=== PATIENT | male | born 1970 | race Caucasian/White ===

== ENCOUNTER 2017-05-20 08:35 | Emergency (ER) | payer OTHER ==
[~2017-05-20] VITALS: Ht 182.9 cm; Wt 99.8 kg
[2017-05-20] MEDS ORDERED: IV NORMAL SALINE 1000ML BAG 1,000 ML IV SCH (09:00)
[2017-05-20] MEDS ORDERED: ONDANSETRON PF 4 MG/2 ML VIAL. IV ONE (09:00)
[2017-05-20] MEDS ORDERED: fentaNYL PF VIAL 100 MCG/2 ML VIAL IV PRN (09:00)
--- NOTE | 2017-05-20 09:10 | PHYS DOC ---
Past Medical History Past Medical History: No Pertinent History Past Surgical History: Other Additional Past Surgical Histo: ACL Alcohol Use: None Drug Use: None Adult General Chief Complaint Chief Complaint: OTHER COMPLAINTS HPI HPI Patient is a 46 year old male who presents with complaint of low back pain. Patient states symptoms started 3 days ago. 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 Patient states that this started with tightness in his low back. Patient states that over the past 2-3 days it has progressed to severe tightness and pain in his low back. Patient states he started getting numbness and tingling radiating into his right leg. The patient states that he has been diagnosed in the past with bulging disc and degenerative arthritis at L2 and L3. Patient has not required any surgeries and is not currently on medications for treatment. The patient currently rates his pain as 9 out of 10. Patient states that he started having severe pain in his right lower extremity which progressed to numbness. Patient states that he tried to get out of bed under his own power this morning but unfortunately collapsed to the ground as his right leg did not seem to support him. Patient denies any difficulty with speech or swallowing, foot drop, saddle anesthesia, or loss of bowel or bladder control. Patient has not taken any medications today to help with symptoms. Review of Systems Review of Systems Constitutional: Denies fever or chills [] Eyes: Denies change in visual acuity, redness, or eye pain [] HENT: Denies nasal congestion or sore throat [] Respiratory: Shortness of breath, denies cough[] Cardiovascular: Denies chest pain or edema[] GI: Denies abdominal pain, nausea, vomiting, bloody stools or diarrhea [] : Denies dysuria or hematuria [] Musculoskeletal: Right lower extremity pain, back pain[] Integument: Denies rash or skin lesions [] Neurologic: Numbness in right lower extremity[] All other systems were reviewed and found to be within normal limits, except as documented in this note. Current Medications Current Medications Current Medications Medications (Trade) Dose Ordered Sig/Edgar Start Time Stop Time Status Last Admin Dose Admin Acetaminophen/ Hydrocodone Bitart (Lortab 7.5/325) 1 tab 1X ONCE 05/20/17 10:30 05/20/17 10:32 DC 05/20/17 10:36 1 TAB Dexamethasone Sodium Phosphate (Decadron) 12 mg 1X ONCE 05/20/17 09:15 05/20/17 09:16 DC 05/20/17 09:46 12 MG Fentanyl Citrate (Fentanyl 2ml Vial) 25 mcg PRN Q15MIN PRN 05/20/17 09:00 05/20/17 10:47 DC 05/20/17 09:47 25 MCG Ondansetron HCl (Zofran) 4 mg 1X ONCE 05/20/17 09:00 05/20/17 09:05 DC 05/20/17 09:45 4 MG Orphenadrine Citrate (Norflex) 60 mg 1X ONCE 05/20/17 09:15 05/20/17 09:16 DC 05/20/17 09:51 60 MG Sodium Chloride 1,000 ml @ 100 mls/hr Q10H 05/20/17 09:00 05/20/17 10:47 DC 05/20/17 09:44 100 MLS/HR Allergies Allergies Allergies Coded Allergies Type Severity Reaction Last Updated Verified Penicillins Allergy Intermediate 02/27/14 Yes Physical Exam Physical Exam Constitutional: Alert, afebrile, appears in moderate discomfort. [] HENT: Normocephalic, atraumatic, bilateral external ears normal, oropharynx moist, no oral exudates, nose normal. [] Eyes: PERRLA, EOMI, conjunctiva normal, no discharge. [] Neck: Normal range of motion, no tenderness, supple, no stridor. [] Cardiovascular:Heart rate regular rhythm, no murmur [] Lungs & Thorax: Bilateral breath sounds clear to auscultation [] Abdomen: Bowel sounds normal, soft, no tenderness, no masses, no pulsatile masses. [] Skin: Warm, dry, no erythema, no rash. [] Back: No midline tenderness, right mid and lower lumbar paraspinous muscle tenderness to palpation, positive straight leg test and right lower extremity[] Extremities: No tenderness, no cyanosis, no clubbing, ROM intact, no edema. [] Neurologic: Alert and oriented X 3, normal motor function, deep tendon reflexes normal in bilateral lower extremities, mildly decreased sensation to light touch in right foot, deep pressure sensation intact. [] Current Patient Data Vital Signs Vital Signs Date Time Temp Pulse Resp B/P (MAP) Pulse Ox O2 Delivery O2 Flow Rate FiO2 05/20/17 10:20 77 18 124/77 (93) 99 Room Air 05/20/17 09:06 97.7 97.7 Lab Values Laboratory Tests Test 05/20/17 09:10 White Blood Count 4.6 x10^3/uL (4.0-11.0) Red Blood Count 4.75 x10^6/uL (4.30-5.70) Hemoglobin 15.5 g/dL (13.0-17.5) Hematocrit 44.9 % (39.0-53.0) Mean Corpuscular Volume 95 fL (79-100) Mean Corpuscular Hemoglobin 33 pg (25-35) Mean Corpuscular Hemoglobin Concent 35 g/dL (31-37) Red Cell Distribution Width 12.7 % (11.5-14.5) Platelet Count 132 x10^3/uL (140-400) L Neutrophils (%) (Auto) 51 % (31-73) Lymphocytes (%) (Auto) 38 % (24-48) Monocytes (%) (Auto) 9 % (0-9) Eosinophils (%) (Auto) 2 % (0-3) Basophils (%) (Auto) 1 % (0-3) Neutrophils # (Auto) 2.3 x10^3uL (1.8-7.7) Lymphocytes # (Auto) 1.7 x10^3/uL (1.0-4.8) Monocytes # (Auto) 0.4 x10^3/uL (0.0-1.1) Eosinophils # (Auto) 0.1 x10^3/uL (0.0-0.7) Basophils # (Auto) 0.0 x10^3/uL (0.0-0.2) Sodium Level 138 mmol/L (136-145) Potassium Level 4.0 mmol/L (3.5-5.1) Chloride Level 105 mmol/L (98-107) Carbon Dioxide Level 26 mmol/L (21-32) Anion Gap 7 (6-14) Blood Urea Nitrogen 21 mg/dL (8-26) Creatinine 0.9 mg/dL (0.7-1.3) Estimated GFR (Cockcroft-Gault) 90.8 Glucose Level 136 mg/dL (70-99) H Calcium Level 8.8 mg/dL (8.5-10.1) Magnesium Level 1.9 mg/dL (1.8-2.4) Laboratory Tests 05/20/17 09:10 Laboratory Tests 05/20/17 09:10 EKG EKG Interpreted by me: Heart rate 81, sinus rhythm, normal intervals, leftward axis , no acute ST/T-wave abnormalities present[] Radiology/Procedures Radiology/[place] [address] IMAGING REPORT Signed PATIENT: KENNETH CORTEZ ACCOUNT: [id number] : 1970 LOCATION: ER AGE: 46 SEX: M EXAM STATUS: PRE ER ORD. PHYSICIAN: FERNANDO CHAND MD REASON: shortness of breath PROCEDURE: PORTABLE CHEST 1V Single view chest History:shortness of breath, fell out of bed An AP view of the chest is submitted. Comparison: None. Findings: There is no significant infiltrate, pleural effusion, or pneumothorax. The pericardial cardiac silhouette is within normal limits in size. The trachea is in the midline. No acute osseous abnormality is identified. Impression: There is no radiographic evidence of acute cardiopulmonary disease. DICTATED and SIGNED BY: KALINA BLANC MD DATE: 05/20/17942 CC: FERNANDO CHAND MD; NON,STAFF ~ [place] [id number] IMAGING REPORT Signed PATIENT: KENNETH CORTEZ ACCOUNT: [id number] : 1970 LOCATION: ER AGE: 46 SEX: M EXAM STATUS: PRE ER ORD. PHYSICIAN: FERNANDO CHAND MD REASON: back pain PROCEDURE: LUMBAR SPINE 2-3V LUMBAR SPINE 2-3V History:back pain, fell out of bed Comparison: None Findings:3 views of the lumbar spine are submitted. Lumbar vertebral body stature and AP alignment are adequate. There is mild spondylosis. No acute osseous abnormality is identified by radiographs. Impression: 1.No acute osseous abnormality is identified by radiographs. DICTATED and SIGNED BY: KALINA BLANC MD DATE: 05/20/17 0947 CC: FERNANDO CHAND MD; NON,STAFF ~ [] Course & Med Decision Making Course & Med Decision Making Pertinent Labs and Imaging studies reviewed. (See chart for details) Patient was given Norflex and Decadron in the emergency department with improvement in symptoms. Patient was additionally given oral hydrocodone for longer lasting pain relief. Patient's x-rays show degeneration at the T12-L1 disc space. The patient's symptoms appear consistent with right-sided radiculopathy secondary to acute on chronic back pain. The patient will be continued on prednisone and Flexeril for outpatient treatment. Advise follow-up in 3 days a primary doctor for reevaluation and return emergency department for any worsening symptoms. Patient voiced understanding and in agreement with treatment plan. Dragon Disclaimer Dragon Disclaimer This electronic medical record was generated, in whole or in part, using a voice recognition dictation system. Departure Departure Impression: Primary Impression: Acute low back pain Disposition: 01 HOME, SELF-CARE Condition: IMPROVED Referrals: NON,STAFF (PCP) Patient Instructions: Back Pain, Adult, Sciatica, [id number] Additional Instructions: Follow-up with your primary doctor in 3 days for reevaluation. Return to emergency department for any worsening symptoms. Scripts Cyclobenzaprine Hcl (CYCLOBENZAPRINE HCL) 10 Mg Tablet 1 TAB PO TID Y for MUSCLE PAIN, #30 TAB Prov: FERNANDO CHAND MD 05/20/17 Prednisone (PREDNISONE) 50 Mg Tablet 1 TAB PO DAILY, #5 TAB Prov: FERNANDO CHAND MD 05/20/17 Problem Qualifiers Primary Impression: Acute low back pain Back pain laterality: right Sciatica presence: with sciatica Sciatica laterality: sciatica of right side Qualified Codes: M54.41 - Lumbago with sciatica, right side FERNANDO CHAND MD May 20, 2017 09:10
[2017-05-20] MEDS ORDERED: ORPHENADRINE CITRATE 60 MG/2 ML VIAL. IM ONE (09:15)
[2017-05-20] MEDS ORDERED: DEXAMETHASONE SOD PHOS 20 MG/5 ML VIAL. IV ONE (09:15)
[2017-05-20 09:28] LABS: BASO % 1 % (0-3); EOS % 2 % (0-3); HEMATOCRIT 44.9 % (39.0-53.0); HEMOGLOBIN 15.5 g/dL (13.0-17.5); LYMPH # 1.7 x10^3/uL (1.0-4.8); LYMPH % 38 % (24-48); MEAN CORPUSCULAR HEMOGLOBIN 33 pg (25-35); MEAN CORPUSCULAR HGB CONC 35 g/dL (31-37); MEAN CORPUSCULAR VOLUME 95 fL (79-100); MONO % 9 % (0-9); NEUT % 51 % (31-73); PLATELET COUNT 132 x10^3/uL (140-400); RED BLOOD COUNT 4.75 x10^6/uL (4.30-5.70); RED CELL DISTRIBUTION WIDTH 12.7 % (11.5-14.5); WHITE BLOOD COUNT 4.6 x10^3/uL (4.0-11.0)
[2017-05-20 09:37] LABS: CALCIUM 8.8 mg/dL (8.5-10.1); CREATININE 0.9 mg/dL (0.7-1.3); GFR 90.8; MAGNESIUM 1.9 mg/dL (1.8-2.4)
--- NOTE | 2017-05-20 09:48 | RAD ---
Single view chest History:shortness of breath, fell out of bed An AP view of the chest is submitted. Comparison: None. Findings: There is no significant infiltrate, pleural effusion, or pneumothorax. The pericardial cardiac silhouette is within normal limits in size. The trachea is in the midline. No acute osseous abnormality is identified. Impression: There is no radiographic evidence of acute cardiopulmonary disease.
--- NOTE | 2017-05-20 09:52 | RAD ---
LUMBAR SPINE 2-3V History:back pain, fell out of bed Comparison: None Findings:3 views of the lumbar spine are submitted. Lumbar vertebral body stature and AP alignment are adequate. There is mild spondylosis. No acute osseous abnormality is identified by radiographs. Impression: 1.No acute osseous abnormality is identified by radiographs.
[2017-05-20] MEDS ORDERED: PRED50TA PO (10:19)
[2017-05-20] MEDS ORDERED: CYCL10TA2 PO (10:19)
[2017-05-20 10:20] VITALS: BP 124/77
[2017-05-20] MEDS ORDERED: HYDROcodone/APAP 7.5/325MG 1 TAB TABLET PO ONE (10:30)
--- NOTE | 2017-05-20 11:28 | EKG ---
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
== END 2017-05-20 10:47 | disposition home or self-care (01) ==
LOC: ER 08:35
DX: M54.41 Lumbago with sciatica, right side (principal); M79.604 Pain in right leg; R06.02 Shortness of breath; Z88.0 Allergy status to penicillin
CPT/HCPCS: 36415; 71010; 72100; 80048; 83735; 85025; 93005; 96361; 96372; 96374; 96375; 99285; J1100; J2360; J2405; J3010; J7030